=== PATIENT | female | born 1980 | race Caucasian/White ===

== ENCOUNTER 2016-09-16 18:17 | Inpatient (IN) | payer BC ==
[~2016-09-16 18:17] MED LIST: BUPIVACAINE (PF) 0.25% 30 ML VIAL ONE; SODIUM CHLORIDE 0.9% 100 ML BAG ONE; fentaNYL (PF) 50 MCG/ML 5 ML AMP ONE
[2016-09-16] MEDS ORDERED: OXYTOCIN 10 UNIT/ML 1 ML VIAL IM PRN (18:52)
[2016-09-16] MEDS ORDERED: TERBUTALINE 1 MG/ML VIAL SQ PRN (18:52)
[2016-09-16] MEDS ORDERED: METHYLERGONOVINE 0.2 MG/ML 1 ML AMP IM PRN (18:52)
[2016-09-16] MEDS ORDERED: CARBOPROST TROMETHAMINE 250 MCG/ML 1 ML AMP IM PRN (18:52)
[2016-09-16] MEDS ORDERED: LIDOCAINE 1% (PF) 10 MG/ML (30 ML SDV) SQ PRN (18:52)
[2016-09-16] MEDS ORDERED: BUTORPHANOL 1 MG/ML 1 ML VIAL IV PRN (18:53)
[2016-09-16] MEDS: LACTATED RINGERS 1,000 ML IV SCH (19:39)
[2016-09-16 19:55] LABS: Basophils % (A) 0 %; CH 32.5; CHCM 34.5; Eosinophils # (A) 0.1 k/uL (0-0.7); Eosinophils % (A) 0 %; HCT 35.2 % (34.0-46.0); HDW 2.59; HGB 11.9 gm/dL (11.4-16.0); Luc # (Auto) 0.28; Luc % (Auto) 3; Lymphocytes # (A) 1.8 k/uL (1.0-4.8); Lymphocytes % (A) 16 %; MCHC 33.9 g/dL (31.0-37.0); MCV 94.5 fL (80.0-100.0); Mean Platelet Volume 7.6; Monocytes # (A) 0.6 k/uL (0-1.0); Monocytes % (A) 6 %; Neutrophils # (A) 8.5 k/uL (1.3-7.7); Neutrophils % (A) 75 %; RBC 3.73 m/uL (3.80-5.40); RDW 13.6 % (11.5-15.5); WBC 11.3 k/uL (3.8-10.6); WBC (Perox) 11.87
[2016-09-16 20:15] VITALS: BMI 28.1
[2016-09-17] MEDS: LACTATED RINGERS 1,000 ML IV SCH ×3 (03:32→09:21)
[2016-09-17] MEDS ORDERED: PENICILLIN G POTASSIUM 5,000,000 UNIT in DEXTROSE 5% IN WATER 100 ML IVPB STA ×2 (05:27)
--- NOTE | 2016-09-17 05:32 | P.HPOB ---
History of Present Illness H&P Date: 09/17/16 Chief Complaint: My water broke at 5:00 This is a 36-year-old white female 3 para 2002 EDC 09/27/2016 at 38-4/7 weeks' gestation. Patient presented last night with a history of a large fluid gush at approximately 5 PM. She has had mild irregular contractions to follow. Fetus is been active throughout the . Past medical history is significant for scoliosis. Past surgical history breast biopsy of benign pathology, wisdom teeth extracted. Current medications vitamins daily. ALLERGIES none known. 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 Family history is significant for heart issues, insulin-dependent diabetes. history blood type is A+, rubella status immune. VDRL testing, urine culture, hepatitis B surface antigen, HIV testing, gonorrhea and chlamydia cultures all negative. Group B strep cultures negative. One-hour Glucola 111. On exam this is a pleasant white female who is 5 foot 7 inches, 180 pounds, blood pressure 126/70, patient is afebrile. The general physical exam is within normal limits. The cervix is 3-4 cm dilated, 70% effaced, -2 station, vertex presentation. heart tones are consistent with reactive NST. Irregular uterine contractions are noted. Impression: 38-4/7 weeks intrauterine , spontaneous amniorrhexis, not in labor. Plan: We will begin antibiotic prophylaxis at this time. Oxytocin per hospital protocol. Anticipate normal spontaneous vaginal delivery. Review of Systems Constitutional: Reports as per HPI Past Medical History Past Medical History: No Reported History History of Any Multi-Drug Resistant Organisms: None Reported Additional Past Surgical History / Comment(s): wisdom teeth Past Anesthesia/Blood Transfusion Reactions: No Reported Reaction Past Psychological History: No Psychological Hx Reported Smoking Status: Never smoker Past Alcohol Use History: Unable to Obtain Past Drug Use History: None Reported - Past Family History Mother Family Medical History: No Reported History Medications and Allergies Home Medications Medication Instructions Recorded Confirmed Type Vit No.124/Iron/Folic 1 each PO DAILY 08/14/14 09/16/16 History [ Vitamin Tablet] Allergies Allergy/AdvReac Type Severity Reaction Status Date / Time No Known Allergies Allergy Verified 09/16/16 18:51 Exam - Vital Signs Vital signs: Vital Signs Temp Pulse Resp BP 09/16/16 18:52 98.1 F 76 16 126/70 Intake and Output 09/16/16 09/16/16 09/17/16 14:59 22:59 06:59 Other: # Voids 3 Weight 81.647 kg Patient Weight 09/17/16 06:59 Weight 81.647 kg see dictation in HPI Results Result Diagrams: 09/16/16 19:37 Abnormal Lab Results - Last 24 Hours (Table) 09/16/16 Range/Units 19:37 WBC 11.3 H (3.8-10.6) k/uL RBC 3.73 L (3.80-5.40) m/uL Neutrophils # 8.5 H (1.3-7.7) k/uL Assessment and Plan Plan: oxytocin per protocol, begin antibiotics. Time with Patient: Less than 30
[2016-09-17] MEDS: OXYTOCIN 20 UNITS/1000 ML NS 1,000 ML IV SCH (05:49)
[2016-09-17] MEDS ORDERED: BUPIVACAINE (PF) 0.25% 25 ML, fentaNYL (PF) 200 MCG in SODIUM CHLORIDE 0.9% 71 ML EPIDURAL ONE (08:39)
[2016-09-17] MEDS: PENICILLIN G POTASSIUM 2,500,000 UNIT in DEXTROSE 5% IN WATER 100 ML IVPB SCH ×4 (10:05→19:58)
[2016-09-17] MEDS ORDERED: SIMETHICONE 80 MG CHEWABLE PO PRN (10:39)
[2016-09-17] MEDS ORDERED: WITCH HAZEL 1 EACH MED..PAD TOPICAL PRN (10:39)
[2016-09-17] MEDS ORDERED: Acetaminophen-Codeine 300-30mg TAB PO PRN (10:39)
[2016-09-17] MEDS ORDERED: LANOLIN CREAM 5 GM TUBE TOPICAL PRN (10:39)
[2016-09-17] MEDS ORDERED: ZOLPIDEM 5 MG TAB PO PRN (10:39)
[2016-09-17] MEDS ORDERED: diphenhydrAMINE 50 MG/ML 1 ML VIAL IVP PRN ×2 (10:39)
[2016-09-17] MEDS ORDERED: diphenhydrAMINE 50 MG CAP PO PRN (10:39)
[2016-09-17] MEDS ORDERED: BENZOCAINE SPRAY 57GM TOPICAL PRN (10:39)
[2016-09-17] MEDS ORDERED: HYDROCORTISONE 2.5% RECTAL CREAM 30 GM TUBE RECTAL PRN (10:39)
[2016-09-17] MEDS ORDERED: diphenhydrAMINE 25 MG CAP PO PRN (10:39)
--- NOTE | 2016-09-17 10:39 | P.PROBDLV ---
Vaginal Delivery Note - . Vaginal Delivery Note: This is a 36-year-old white female 3 para 2002 EDC 09/27/2016 at 38-3/7 weeks' gestation. Patient presented with spontaneous amniorrhexis, clear fluid which occurred last night. She was admitted, oxytocin was started this morning at approximately 0500 hrs. was unremarkable, group B strep cultures negative, blood type A+, rubella status immune. Please see my dictated delivery note for details. Patient progressed well through labor this morning. She requested and received an epidural without difficulty. heart tones were reassuring throughout the first and second stages of labor. She was judged to be completely dilated and began the second stage of labor at that time. Excellent maternal expulsive efforts were noted. Perineal body was prepped and draped in usual sterile fashion. Infant's head delivered occiput anterior and she restituted accordingly. Was a very short cord noted. Patient was officially delivered of a liveborn female infant at 1016 hrs. Umbilical cord was doubly clamped and ligated, she was handed to waiting nurses for evaluation where scores of 9 and 9 at one and 5 minutes respectively were given. The placenta delivered spontaneously, it was inspected and noted to be intact with trivascular membrane at 1024 hrs. Again short cord was noted, possible membranous insertion, I did have manual assistance for the lower aspect of the placenta from the lower uterine segment. Uterus is massaged, firm, 18 week size upon completion of delivery. At this time the perineal body is redraped. Inspection of the cervix, vagina, perineum periurethral and perirectal areas revealed a small first-degree midline laceration easily repaired with a single zvtuem-dp-oquda suture of 3-0 Vicryl. Infant weighs 2995 g or 6 lbs. 10 oz. All sponge needle and enhancement counts are correct at the end of the procedure. Patient and her family are allowed to begin the bonding experience in the LDR.
[2016-09-17] MEDS: IBUPROFEN 600 MG TAB PO PRN (15:14)
[2016-09-17] MEDS: SENNOSIDES-DOCUSATE SODIUM 1 EACH TAB PO SCH (19:43)
[2016-09-17] MEDS: ACETAMINOPHEN TAB 325 MG TAB PO PRN (19:43)
[2016-09-18] MEDS: OXYTOCIN 20 UNITS/1000 ML NS 1,000 ML IV SCH ×2 (07:04→20:23)
[2016-09-18] MEDS: SENNOSIDES-DOCUSATE SODIUM 1 EACH TAB PO SCH ×2 (07:41→19:50)
[2016-09-18] MEDS: IBUPROFEN 600 MG TAB PO PRN ×2 (07:41→19:50)
--- NOTE | 2016-09-18 08:09 | P.DS ---
Providers Date of admission: 09/16/16 18:52 Expected date of discharge: 09/18/16 Attending physician: Adrienne Sparks Primary care physician: Adrienne Sparks [facility] Course: This is a 26-year-old white female 3 para 2002 EDC 09/27/2016 at 38-3/7 weeks' gestation. Patient presented to the hospital with spontaneous amniorrhexis, clear fluid, not in active labor. was essentially unremarkable, group B strep cultures negative, blood type A+, rubella status immune. Please see my dictated history and physical for details. Oxytocin augmentation was given, patient went on to deliver a liveborn female with scores of 9 and 9 at one and 5 minutes respectively. Infant weighed 6 lbs. 10 oz. or 2995 g. There was an estimated blood loss recorded of 250 mL, a small first-degree perineal laceration easily repaired. Please see dictated or note for details. The patient this morning is doing well. She is ambulating, passing flatus, voiding without difficulty. Breasts are not engorged. Breast-feeding is going well. Pain is well tolerated with ujyt-val-ptazfon products. There is minimal to moderate lochia rubra. Externally's are negative for edema. Fundus is firm and in the midline, symmetric and 18 week size. Patient is being discharged home in very good condition. She will follow-up in the office with me in 6 weeks. I have reminded her no intercourse, tampons or douching. She will use iazd-nav-fnhsfku Advil products as needed for pain. I have given her prescription for a double electric breast pump. She will call with any fevers shakes or chills, foul smelling or copious lochia, with the passage of large blood clots, with any pain not alleviated by hvcj-brk-tnxokxt products, or indeed with any concerns. Patient Condition at Discharge: Good Plan - Discharge Summary New Discharge Prescriptions: No Action Vit No.124/Iron/Folic [ Vitamin Tablet] 1 each PO DAILY Discharge Medication List Vit No.124/Iron/Folic [ Vitamin Tablet] 1 each PO DAILY [History] Follow up Appointment(s)/Referral(s): Adrienne Sparks MD [Primary Care Provider] - 6 Weeks Discharge Disposition: HOME SELF-CARE
[2016-09-18] MEDS: ACETAMINOPHEN TAB 325 MG TAB PO PRN (12:37)
[2016-09-19] MEDS: ACETAMINOPHEN TAB 325 MG TAB PO PRN ×2 (01:41→08:00)
[2016-09-19] MEDS: IBUPROFEN 600 MG TAB PO PRN (06:24)
--- NOTE | 2016-09-19 08:22 | P.DS ---
Providers Date of admission: 09/16/16 18:52 Expected date of discharge: 09/19/16 Attending physician: Adrienne Sparks [facility] Course: This is a 36-year-old white female 3 para 2002 EDC 09/27/2016 at 38-3/7 weeks' gestation. Patient presented with spontaneous amniorrhexis which occurred at home, clear fluid. She was admitted and rested through the evening. Oxytocin was started early the following morning. was unremarkable, rubella status immune, blood type A+, group B strep cultures negative please see my dictated history and physical for details. Patient went on to deliver a liveborn female infant with scores of 9 and 9 at one and 5 minutes respectively. weighed 2995 g or 6 lbs. 10 oz. Placenta delivered spontaneously, however there was manual assistance in the lower uterine segment for the after coming portion. It was noted to be intact with trivascular cord, short cord was noted. Please see my dictated delivery note for details. A small first-degree spontaneous laceration in the midline was repaired with a single egbvhn-xq-qtuyj suture. Patient has done well. This morning she is voiding, ambulate bleeding, passing flatus without difficulty. Vital signs are stable and she is afebrile. Fundus is firm and in the midline, symmetric and 18 week size. Extremities are negative for edema. The breasts are not engorged. Breast-feeding is going well. infant is doing well. Patient is being discharged home today in very good condition. She will follow- up with me in the office in 6 weeks. I have reminded her no intercourse, tampons or douching. She will use byuz-lks-warcppu Aleve or Advil as needed for pain, and will follow instructions on the bottle as appropriate. She will continue taking her vitamin daily. I have given her prescription for a breast pump to be used as needed. We have discussed briefly her options for contraception and we will discuss this further in the office. She will call with any fevers shakes or chills, foul smelling or copious lochia, with the passage of large blood clots, with any pain not alleviated by lyjh-rqw-njvkffc products, or indeed with any concerns. Patient Condition at Discharge: Good Plan - Discharge Summary New Discharge Prescriptions: No Action Vit No.124/Iron/Folic [ Vitamin Tablet] 1 each PO DAILY Discharge Medication List Vit No.124/Iron/Folic [ Vitamin Tablet] 1 each PO DAILY [History] Follow up Appointment(s)/Referral(s): Adrienne Sparks MD [Primary Care Provider] - 6 Weeks Discharge Disposition: HOME SELF-CARE
[2016-09-19 08:26] VITALS: RESP 16
[2016-09-19 16:52] VITALS: BP 119/74; PULSE 62; TEMP 98.4
== END 2016-09-19 16:52 | disposition home or self-care (01) | DRG 775 ==
LOC: FBPOP 18:17 → 4FBP 18:52
PROVIDERS: ADMIT Obstetrics & Gynecology; ATTEND Obstetrics & Gynecology
PROC: 00HU33Z Insertion of Infusion Device into Spinal Canal, Percutaneous Approach (ICD-10-PCS; principal; 2016-09-16)
PROC: 10E0XZZ Delivery of Products of Conception, External Approach (ICD-10-PCS; principal; 2016-09-16)
PROC: 3E0R3CZ (ICD-10-PCS; principal; 2016-09-16)
PROC: 0HQ9XZZ Repair Perineum Skin, External Approach (ICD-10-PCS; principal; 2016-09-16)
DX: O70.0 First degree perineal laceration during delivery (principal); M41.9 Scoliosis, unspecified; Z37.0 Single live birth; O69.3XX0 Labor and delivery complicated by short cord, not applicable or unspecified; Z3A.38 38 weeks gestation of pregnancy; Z87.891 Personal history of nicotine dependence
CPT/HCPCS: 59025; 84112; 85025; 88307; 99213

== ENCOUNTER 2019-06-12 12:24 | Outpatient (CLI) | payer BC ==
[2019-06-12 12:54] VITALS: BP 120/65; PULSE 79; RESP 18; TEMP 97.5
--- NOTE | 2019-06-29 11:44 | P.MSEPDOC ---
Presenting Problems - Arrival Data Date of Arrival on Unit: 06/12/19 Time of Arrival on Unit: 12:24 Mode of Transport: Ambulatory - Complaint OB-Reason for Admission/Chief Complaint: Decreased Movement Medical History - Information : 4 Para: 3 Term: 3 : 0 Abortions: Spontaneous or Elective: 0 Number of Living Children: 3 - Gestational Age Gestational Age by RUSTAM (wks/days): 32 Weeks and 4 Days Review of Systems - Review of Systems Constitutional: No problems Breast: No problems ENT: No problems Cardiovascular: No problems Respiratory: No problems Gastrointestinal: No problems Genitourinary: No problems Musculoskeletal: No problems Neurological: No problems Skin: No problems Vital Signs - Temperature Temperature: 97.5 F Temperature Source: Oral - Pulse Left Pulse Oximetery Pulse Rate: 79 Pulse Assessment Method: Pulse Oximetry - Respirations Respiratory Rate: 18 Oxygen Delivery Method: Room Air O2 Sat by Pulse Oximetry: 100 - Blood Pressure Right Arm Blood Pressure: 120/65 Blood Pressure Mean: 83 Blood Pressure Source: Automatic Cuff Medical Screen Scoring (Pre) - Cervical Exam Dilation: Exam Deferred Effacement: Exam Deferred Membranes: Intact - Uterine Contractions Frequency: N/A Duration: N/A Intensity: N/A - Maternal Vital Signs Maternal Temperature: N/A Maternal Blood Pressure: N/A Signs of Preeclampsia: N/A Maternal Respirations: N/A - Maternal Trauma Maternal Trauma: N/A - Assessment - Baby A Baseline FHR: 140 Heart Rate - NICHD Category: Category I (Normal) = 0 NST: Reactive Position: N/A Station: N/A - Total Score - Baby A Total Score - Baby A: 0 - Total Score - Baby B Total Score - Baby B: 0 - Total Score - Baby C Total Score - Baby C: 0 - Level of Risk - Baby A Level of Risk - Baby A: Low (0-5) - Level of Risk - Baby B Level of Risk - Baby B: Low (0-5) - Level of Risk - Baby C Level of Risk - Baby C: Low (0-5) Physician Notification (Pre) - Physician Notified Physician Notified Date: 06/12/19 Physician Notified Time: 12:52 New Order Received: Yes (discharge with follow up instructions.) Disposition - Disposition OB Disposition: Discharge to home Discharge Date: 06/12/19 Discharge Time: 12:52 I agree with the RN Medical Screening Exam: Yes Risk & Benefit of care provided described in d/c instruction: Yes Diagnosis: DECREASED MOVEMENTS, THIRD TRIMESTER, FETUS 1
== END 2019-06-12 12:52 | disposition home or self-care (01) ==
LOC: FBPOP 12:24
PROVIDERS: ATTEND Obstetrics & Gynecology Obstetrics
DX: O36.8131 Decreased fetal movements, third trimester, fetus 1 (principal); Z3A.32 32 weeks gestation of pregnancy
CPT/HCPCS: 59025; 99213

== ENCOUNTER 2019-07-26 22:17 | Inpatient (IN) | payer BC ==
[~2019-07-26 22:17] MED LIST changes: -BUPIVACAINE (PF) 0.25% 30 ML VIAL ONE; +ROPIVACAINE 5MG/ML 20ML VIAL ONE
[2019-07-26] MEDS ORDERED: TERBUTALINE 1 MG/ML VIAL SQ PRN (23:43)
[2019-07-26] MEDS ORDERED: OXYTOCIN 10 UNIT/ML 1 ML VIAL IM PRN (23:43)
[2019-07-26] MEDS ORDERED: LIDOCAINE 0.5% (PF) 5 MG/ML (50 ML SDV) SQ PRN (23:43)
[2019-07-26] MEDS ORDERED: CARBOPROST TROMETHAMINE 250 MCG/ML 1 ML AMP IM PRN (23:43)
[2019-07-26] MEDS ORDERED: METHYLERGONOVINE 0.2 MG/ML 1 ML AMP IM PRN (23:43)
[2019-07-26] MEDS ORDERED: OXYTOCIN 30 UNITS/500 ML NS 30 UNIT in SALINE 1 500ML.BAG IV SCH (23:45)
[2019-07-26] MEDS ORDERED: LACTATED RINGERS 1,000 ML IV SCH (23:45)
[2019-07-27] MEDS ORDERED: SODIUM CHLORIDE 0.9% 100 ML BAG ONE (00:44)
[2019-07-27] MEDS ORDERED: fentaNYL (PF) 50 MCG/ML 5 ML AMP ONE (00:44)
[2019-07-27] MEDS ORDERED: ROPIVACAINE 5MG/ML 20ML VIAL ONE (00:44)
[2019-07-27 00:49] LABS: Basophils % (A) 0 %; Eosinophils % (A) 0 %; HCT 35.8 % (34.0-46.0); HGB 11.9 gm/dL (11.4-16.0); Lymphocytes # (A) 1.8 k/uL (1.0-4.8); Lymphocytes % (A) 17 %; MCH 30.8 pg (25.0-35.0); MCHC 33.3 g/dL (31.0-37.0); MCV 92.3 fL (80.0-100.0); Mean Platelet Volume 8.4; Monocytes # (A) 0.6 k/uL (0-1.0); Monocytes % (A) 6 %; Neutrophils # (A) 7.8 k/uL (1.3-7.7); Neutrophils % (A) 74 %; Platelet Count 245 k/uL (150-450); RBC 3.88 m/uL (3.80-5.40); RDW 13.4 % (11.5-15.5); WBC 10.6 k/uL (3.8-10.6)
--- NOTE | 2019-07-27 01:07 | P.HPOB ---
History of Present Illness H&P Date: 07/27/19 Chief Complaint: Strong, regular uterine contractions. This is a 38 rolled white female 4 para 3003 EDC 08/03/2019 at 39 weeks gestation. Patient was noted to be 4-5 cm in the office and scheduled for induction today. She presents however with strong regular uterine contractions. She denies fluid leakage or vaginal bleeding. Fetus is been active throughout the . ALLERGIES none known. Current medications vitamins daily. Past surgical history benign breast biopsy, wisdom teeth extracted. Past medical history scoliosis. Family history significant for diabetes and congenital heart defects. Social history patient is a former tobacco smoker, none with . She denies alcohol or drug use. 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 She is and her 's name is Adonis. history is significant for blood type A+, rubella status immune. VDRL testing, hepatitis B surface antigen, gonorrhea and chlamydia cultures, Pap smear, group B strep cultures all negative. One-hour Glucola 114. On exam patient is 5 foot 7 inches, 175 pounds, vital signs are stable and she is afebrile. The general physical exam is within normal limits. Uterine contractions are occurring approximately every 4 minutes apart. heart rate is consistent with reactive NST, baseline 1:30, frequent accelerations. Cervix is 9 cm dilated, 80% effaced, vertex presentation, -2 station, soft and anterior. Artificial amniorrhexis reveals clear fluid. Impression: 39 week intrauterine , advanced maternal age, active spontaneous labor. All signs reassuring. Plan: Epidural has just been placed per the patient's request. Continue close maternal and surveillance. Anticipate normal spontaneous vaginal deli very. Review of Systems Constitutional: Reports as per HPI Past Medical History Past Medical History: No Reported History History of Any Multi-Drug Resistant Organisms: None Reported Additional Past Surgical History / Comment(s): wisdom teeth Past Anesthesia/Blood Transfusion Reactions: No Reported Reaction Smoking Status: Never smoker - Past Family History Mother Family Medical History: No Reported History Medications and Allergies Home Medications Medication Instructions Recorded Confirmed Type Vit No.124/Iron/Folic 1 each PO DAILY 08/14/14 07/26/19 History [ Vitamin Tablet] Allergies Allergy/AdvReac Type Severity Reaction Status Date / Time No Known Allergies Allergy Verified 07/26/19 22:39 Exam Vital Signs Temp Pulse Resp BP Pulse Ox 07/26/19 22:41 98.0 F 76 16 126/63 98 Intake and Output 07/26/19 07/26/19 07/27/19 14:59 22:59 06:59 Other: Weight 79.832 kg See dictation under HPI please Results Result Diagrams: 07/27/19 00:28 Abnormal Lab Results - Last 24 Hours (Table) 07/27/19 Range/Units 00:28 Neutrophils # 7.8 H (1.3-7.7) k/uL Assessment and Plan Assessment: 39 week intrauterine , advanced maternal age. Active spontaneous labor. All signs reassuring. Plan: Continue close maternal and surveillance. Epidural has been placed per patient's request. Anticipate normal spontaneous vaginal delivery. Time with Patient: Less than 30
[2019-07-27] MEDS ORDERED: BENZOCAINE/MENTHOL SPRAY 1 GM/SPRAY AEROSOL TOPICAL PRN (02:08)
[2019-07-27] MEDS ORDERED: HYDROCORTISONE 2.5% RECTAL CREAM 30 GM TUBE RECTAL PRN (02:08)
[2019-07-27] MEDS ORDERED: SIMETHICONE 80 MG CHEWABLE PO PRN (02:08)
[2019-07-27] MEDS ORDERED: ZOLPIDEM 5 MG TAB PO PRN (02:08)
[2019-07-27] MEDS ORDERED: diphenhydrAMINE ELIXIR 25 MG/10 ML CUP PO PRN (02:08)
[2019-07-27] MEDS ORDERED: WITCH HAZEL 1 EACH MED..PAD TOPICAL PRN (02:08)
[2019-07-27] MEDS ORDERED: LANOLIN CREAM 5 GM TUBE TOPICAL PRN (02:08)
[2019-07-27] MEDS ORDERED: diphenhydrAMINE 50 MG CAP PO PRN (02:08)
[2019-07-27] MEDS ORDERED: diphenhydrAMINE 50 MG/ML 1 ML VIAL IVP PRN ×2 (02:08)
[2019-07-27] MEDS ORDERED: ACETAMINOPHEN TAB 325 MG TAB PO PRN (02:08)
[2019-07-27] MEDS ORDERED: diphenhydrAMINE 25 MG CAP PO PRN (02:08)
--- NOTE | 2019-07-27 02:08 | P.PROBDLV ---
Vaginal Delivery Note - . Vaginal Delivery Note: This is a 38-year-old white female 4 para 3003 EDC 08/03/2019 at 39 weeks gestation. Patient presented with strong regular uterine contractions. Fetus active throughout the . She denied vaginal bleeding or fluid leakage. Rupee strep cultures negative. Rubella status immune. Please see dictated history and physical for details. Artificial amniorrhexis revealed clear fluid. Oxytocin was not needed. Epidural was placed per the patient's request. She progressed well through the first stage of labor. Patient became completely dilated and began the second stage of labor at that time. heart rates are reassuring throughout the first and second stages of labor. Perineal body was prepped and draped in usual sterile fashion. With excellent expulsive efforts the 's head delivered occiput anterior and restituted accordingly. There was no nuchal cord noted. The right or anterior shoulder was gently delivered from underneath the pubic symphysis at which time the oropharynx, nasopharynx, and external nares were bulb suctioned. Patient was officially delivered of a liveborn male infant at 0152 hours. Umbilical cord was doubly clamped and ligated, he was handed to waiting nurses for evaluation where scores of 9 and 9 at one and 5 minutes respectively were given. Placenta delivered spontaneously, it was inspected and noted to be intact with trivascular cord at 0155 hours. Uterus is then massaged. Careful inspection of the cervix, vagina, perineum, periurethral, and perirectal areas revealed no lacerations or defects. Total estimated blood loss 250 mL's. Infant weighs 7 lbs. 4 oz. or 3290 g. Patient is requesting circumcision for her son. They are allowed to begin the bonding experience in the LDR.
[2019-07-27] MEDS ORDERED: OXYTOCIN 20 UNITS/1000 ML NS 1,000 ML IV SCH (02:15)
[2019-07-27] MEDS: IBUPROFEN 600 MG TAB PO PRN ×3 (08:02→19:55)
[2019-07-27] MEDS: SENNOSIDES-DOCUSATE SODIUM 1 EACH TAB PO SCH ×2 (08:02→19:56)
[2019-07-27 20:27] VITALS: RESP 16
[2019-07-27 23:51] VITALS: PULSE 76
[2019-07-28] MEDS: IBUPROFEN 600 MG TAB PO PRN (06:03)
[2019-07-28 07:50] VITALS: BP 123/67; TEMP 98.2
--- NOTE | 2019-07-28 13:01 | P.DS ---
Providers Date of admission: 07/26/19 23:58 Expected date of discharge: 07/28/19 Attending physician: Adrienne Sparks Primary care physician: Adrienne Sparks - Discharge Diagnosis(es) (1) Normal vaginal delivery Status: Acute Hospital Course: The patient is a 38-year-old 4 para 3003 who was scheduled for elective induction but presented instead in active labor the night previously. Her has been uncomplicated and group B strep status is negative. On labor and delivery, she underwent artificial rupture of membranes for clear fluid and had an epidural catheter placed for analgesia. She progressed fairly quickly to complete and then pushed to a normal spontaneous vaginal delivery of a viable 7 lbs. 4 oz. baby boy with Apgars of 9 at 1 minute and 9 at 5 minutes. Her course was unremarkable vital signs remaining stable and her temperature was afebrile throughout. She was deemed stable for discharge on day #1 was discharged home to follow-up in the office in 6 weeks' time routinely. Discharge instructions included calling for any significantly increased bleeding or foul-smelling lochia, significantly increased fever or abdominal pain, perineal complaints, breast complaints, or anything else that concerned her. She was additionally instructed to have nothing in the vagina for at least 6 weeks time to include intercourse. She understood all of her instructions and agrees to follow up as noted above. Discharge medications included only [id number]-dyxlchp analgesic pain medications and continue vitamins as she has opted to breast-feed. Maternal blood type is A+ and rubella status is immune. Procedures: #1. Artificial rupture of membranes 2. Epidural analgesia #3. Normal spontaneous vaginal delivery Patient Condition at Discharge: Good Plan - Discharge Summary New Discharge Prescriptions: No Action Vit No.124/Iron/Folic [ Vitamin Tablet] 1 each PO DAILY Discharge Medication List Vit No.124/Iron/Folic [ Vitamin Tablet] 1 each PO DAILY 08/14/14 [History] Follow up Appointment(s)/Referral(s): Adrienne Sparks MD [Primary Care Provider] - 6 Weeks Patient Instructions/Handouts: Vaginal Delivery (DC), Vaginal Delivery (GEN) Discharge Disposition: HOME SELF-CARE
== END 2019-07-28 09:42 | disposition home or self-care (01) | DRG 807 ==
LOC: FBPOP 22:17 → 4FBP 23:58
PROVIDERS: ADMIT Obstetrics & Gynecology Obstetrics; ATTEND Obstetrics & Gynecology
PROC: 3E0R3BZ Introduction of Anesthetic Agent into Spinal Canal, Percutaneous Approach (ICD-10-PCS; principal; 2019-07-27)
PROC: 10E0XZZ Delivery of Products of Conception, External Approach (ICD-10-PCS; principal; 2019-07-27)
PROC: 00HU33Z Insertion of Infusion Device into Spinal Canal, Percutaneous Approach (ICD-10-PCS; principal; 2019-07-27)
DX: O80 Encounter for full-term uncomplicated delivery (principal); Z37.0 Single live birth; M41.9 Scoliosis, unspecified; Z3A.39 39 weeks gestation of pregnancy; Z87.891 Personal history of nicotine dependence; Z83.3 Family history of diabetes mellitus; Z82.79 Family history of other congenital malformations, deformations and chromosomal abnormalities
CPT/HCPCS: 59025; 85025; 86850; 86900; 86901; 99213